=== PATIENT | female | born 1995 | race African-American/Black ===

== ENCOUNTER 2017-05-30 19:38 | Emergency (ER) | payer OTHER ==
[~2017-05-30] VITALS: Ht 170.2 cm; Wt 70.5 kg
[2017-05-30 20:05] VITALS: BP 115/79; PULSE 100; TEMP 36.6; O2SAT 96; Ht 170.2 cm; Wt 70.5 kg
--- NOTE | 2017-05-30 20:26 | EMERGENCY ROOM VISIT NOTE ---
History Report prepared by Garima: Tony Pablo Under the Supervision of: Dr. Vane Kauffman M.D. First contact with patient: 20:11 Chief Complaint: MENTAL HEALTH EVALUATION Stated Complaint: DEPRESSION,ANXIETY History of Present Illness The patient is a 21 year old female who presents to the Emergency Room with complaints of constant depression beginning 5 days ago. The patient states she has not been able to concentrate or study for the past five days. She reports she is going through "weepy spells." The patient notes she is still able to go to class and office hours. She states she threw a social 2 nights ago, and she had fun. The patient reports she saw someone from [facility] today, talked about hospitalization and medications, and was told she was not suicidal. She notes she feels slight suicidal ideations, but she mainly thinks of thoughts of isolation. The patient states she thinks she maybe drinking alcohol to feel better. She notes "everyone has those days where they want to grab a bottle of whiskey and drink." She reports she has a history of depression, and she typically stays away from alcohol during her episodes. The patient notes she cannot miss 5 days of school for hospitalization, and she is afraid she will be admitted. She states her last major episode was in high school, and she cannot remember how she dealt with it. The patient reports she did sleep a lot though. She notes she does not want to struggle with it again. The patient states she will drink 2-4 [place] iced teas a night when she goes out. She denies fevers, diarrhea, and a chance of being . Source of History: patient Onset: 5 days ago Position: other (global) Quality: other (depression) Timing: constant Associated Symptoms: No fevers, No diarrhea Note: Associated symptoms: thoughts of isolation Denies: chance of Review of Systems See HPI for pertinent positives & negatives. A total of 10 systems reviewed and were otherwise negative. Past Medical & Surgical Medical Problems: (1) Depression Family History Patient reports no known family medical history. Social History Smoking Status: Never Smoker Smokeless Tobacco Use: No Alcohol Use: occasionally Marital Status: single Housing Status: lives with roommate Occupation Status: [employer] student Allergies Coded Allergies: No Known Allergies (Unverified , 05/30/17) Physical Exam Vital Signs Date Time Temp Pulse Resp B/P (MAP) Pulse Ox O2 Delivery O2 Flow Rate FiO2 05/30/17 20:05 36.6 100 18 115/79 96 Room Air Physical Exam Vital signs reviewed. Limited physical exam as patient was in the waiting room. General: Well-appearing 21-year-old female, in no significant distress. Musculoskeletal: Atraumatic, no peripheral edema. Neurologic: Patient awake alert and oriented x 3 Skin: Warm, dry, no rash Psych: Passive SI without a plan. Negative HI. Medical Decision & Procedures Laboratory Results 05/30/17 20:41 Red Blood Count 4.85, Mean Corpuscular Volume 86.8, Mean Corpuscular Hemoglobin 30.3, Mean Corpuscular Hemoglobin Concent 34.9, Mean Platelet Volume 10.4, Neutrophils (%) (Auto) 60.1, Lymphocytes (%) (Auto) 32.1, Monocytes (%) (Auto) 6.1, Eosinophils (%) (Auto) 1.2, Basophils (%) (Auto) 0.3, Neutrophils # (Auto) 6.23, Lymphocytes # (Auto) 3.32, Monocytes # (Auto) 0.63, Eosinophils # (Auto) 0.12, Basophils # (Auto) 0.03 05/30/17 20:41 Test 05/30/17 20:41 05/30/17 20:53 White Blood Count 10.35 K/uL (4.8-10.8) Red Blood Count 4.85 M/uL (4.2-5.4) Hemoglobin 14.7 g/dL (12.0-16.0) Hematocrit 42.1 % (37-47) Mean Corpuscular Volume 86.8 fL (80-100) Mean Corpuscular Hemoglobin 30.3 pg (25-34) Mean Corpuscular Hemoglobin Concent 34.9 g/dl (32-36) Platelet Count 280 K/uL (130-400) Mean Platelet Volume 10.4 fL (7.4-10.4) Neutrophils (%) (Auto) 60.1 % Lymphocytes (%) (Auto) 32.1 % Monocytes (%) (Auto) 6.1 % Eosinophils (%) (Auto) 1.2 % Basophils (%) (Auto) 0.3 % Neutrophils # (Auto) 6.23 K/uL (1.4-6.5) Lymphocytes # (Auto) 3.32 K/uL (1.2-3.4) Monocytes # (Auto) 0.63 K/uL (0.11-0.59) Eosinophils # (Auto) 0.12 K/uL (0-0.5) Basophils # (Auto) 0.03 K/uL (0-0.2) RDW Standard Deviation 42.7 fL (36.4-46.3) RDW Coefficient of Variation 13.4 % (11.5-14.5) Immature Granulocyte % (Auto) 0.2 % Immature Granulocyte # (Auto) 0.02 K/uL (0.00-0.02) Anion Gap 8.0 mmol/L (3-11) Est Creatinine Clear Calc Drug Dose 89.4 ml/min Estimated GFR () 97.3 Estimated GFR (Non- 83.9 BUN/Creatinine Ratio 13.1 (10-20) Calcium Level 8.9 mg/dl (8.5-10.1) Total Bilirubin 0.3 mg/dl (0.2-1) Direct Bilirubin mg/dl (0-0.2) Aspartate Amino Transf (AST/SGOT) 19 U/L (15-37) Alanine Aminotransferase (ALT/SGPT) 22 U/L (12-78) Alkaline Phosphatase 122 U/L (45-117) Total Protein 7.9 gm/dl (6.4-8.2) Albumin 3.9 gm/dl (3.4-5.0) Thyroid Stimulating Hormone (TSH) 1.430 uIu/ml (0.300-4.500) Chemistry Specimen Hemolysis Ethyl Alcohol mg/dL < 3.0 mg/dl (0-3) Urine Color YELLOW Urine Appearance CLEAR (CLEAR) Urine pH 5.5 (4.5-7.5) Urine Specific [place] 1.027 (1.000-1.030) Urine Protein NEG (NEG) Urine Glucose (UA) NEG (NEG) Urine Ketones NEG (NEG) Urine Occult Blood NEG (NEG) Urine Nitrite NEG (NEG) Urine Bilirubin NEG (NEG) Urine Urobilinogen NEG (NEG) Urine Leukocyte Esterase NEG (NEG) Urine Opiates Screen NEG (NEG) Urine Methadone, Qualitative NEG (NEG) Urine Barbiturates NEG (NEG) Urine Phencyclidine (PCP) Level NEG (NEG) Ur Amphetamine/Methamphetamine NEG (NEG) MDMA (Ecstasy) Screen NEG (NEG) Urine Benzodiazepines Screen NEG (NEG) Urine Cocaine Metabolite NEG (NEG) Urine Marijuana (THC) NEG (NEG) Laboratory results per my review. ED Course 2010: Past medical records reviewed. The patient was evaluated in room B07. A complete history and physical examination was performed. 2109: The nurse informed me the patient wants to sign out AMA because she has a bus to catch, and her friends are outside waiting. 2113: Case management spoke with the patient. She has [facility]' phone number and lives with four people. 2115: I reevaluated the patient. She verbalized agreement of the treatment plan. The patient was discharged home. Medical Decision Differential diagnosis: Etiologies such as mood disorder, infection, hypoglycemia, electrolyte abnormalities, cardiac sources, intracerebral event, toxicologic, neurologic, as well as others were entertained. This patient was evaluated and appeared to be in no significant distress. Patient was interviewed and admits to passive SI without a plan. She admits to heavy alcohol use several my to week on average. The patient states she has been "sad" for the last 5 days. There was no inciting event. The patient seems to be somewhat anxious to leave. She denies any suicidal plan. The patient has seen recently. She was encouraged to return to the [facility] for further evaluation and potential medication management. I do not think the patient meets inpatient psychiatric criteria at this time. The patient was evaluated by the field case manager who agrees. She does not seem to be a danger to herself or others. She was discharged to the care of friends and will return to the ER immediately for worsening of symptoms or any medical concerns. Medication Reconcilliation Current Medication List: was personally reviewed by me Blood Pressure Screening Patient's blood pressure: Normal blood pressure Blood pressure disposition: Did not require urgent referral Impression Primary Impression: Mood disorder Scribe Attestation The scribe's documentation has been prepared under my direction and personally reviewed by me in its entirety. I confirm that the note above accurately reflects all work, treatment, procedures, and medical decision making performed by me. Departure Information Dispostion Home / Self-Care Referrals [facility] Forms HOME CARE DOCUMENTATION FORM, IMPORTANT VISIT INFORMATION Patient Instructions My [facility] Additional Instructions Diagnosis: Mood disorder Please follow up with S/[facility] this week for reevaluation. Return to the ED for worsening of symptoms or any medical concerns.
[2017-05-30 21:09] LABS: BASO % 0.3 %; BASO ABS # 0.03 K/uL (0-0.2); EOS % 1.2 %; EOS ABS # 0.12 K/uL (0-0.5); HEMATOCRIT 42.1 % (37-47); HEMOGLOBIN 14.7 g/dL (12.0-16.0); IG# 0.02 K/uL (0.00-0.02); LYMPH % 32.1 %; LYMPH ABS # 3.32 K/uL (1.2-3.4); MEAN CELL VOLUME 86.8 fL (80-100); MEAN CORPUSCULAR HEMOGLOBIN 30.3 pg (25-34); MEAN CORPUSCULAR HGB CONC 34.9 g/dl (32-36); MEAN PLATELET VOLUME 10.4 fL (7.4-10.4); MONO % 6.1 %; MONO ABS # 0.63 K/uL (0.11-0.59); NEUT % 60.1 %; NEUT ABS # 6.23 K/uL (1.4-6.5); PLATELET COUNT 280 K/uL (130-400); RED CELL DISTRIBUTION WIDTH CV 13.4 % (11.5-14.5); RED CELL DISTRIBUTION WIDTH SD 42.7 fL (36.4-46.3); WHITE BLOOD COUNT 10.35 K/uL (4.8-10.8)
[2017-05-30 22:28] LABS: ALBUMIN 3.9 gm/dl (3.4-5.0); ALKALINE PHOSPHATASE 122 U/L (45-117); ALT/SGPT 22 U/L (12-78); AST/SGOT 19 U/L (15-37); BLOOD UREA NITROGEN 13 mg/dl (7-18); CALCIUM 8.9 mg/dl (8.5-10.1); CARBON DIOXIDE 26 mmol/L (21-32); CREATININE 0.96 mg/dl (0.60-1.20); GLUCOSE 88 mg/dl (70-99); POTASSIUM 3.5 mmol/L (3.5-5.1); SODIUM 142 mmol/L (136-145); TOTAL PROTEIN 7.9 gm/dl (6.4-8.2)
== END 2017-05-30 22:23 | disposition home or self-care (01) ==
LOC: C.EDB 19:39
DX: F32.9 Major depressive disorder, single episode, unspecified (principal); R45.851 Suicidal ideations; F10.99 Alcohol use, unspecified with unspecified alcohol-induced disorder